=== PATIENT | male | born 1960 | race Caucasian/White ===

== ENCOUNTER 2016-05-10 12:00 | Day surgery (SDC) | payer BC ==
[2016-05-08 17:49] LABS: ASCORBIC ACID (UR NOT ORDER) NEG (NEG); BILIRUBIN, URINE NEGATIVE (NEG); KETONE, URINE NEGATIVE (NEG)
[2016-05-08 17:53] LABS: HEMATOCRIT 50.4 % (40.0-51.0); HEMOGLOBIN 16.9 g/dL (13.6-17.8)
--- NOTE | ~2016-05-10 | OP ---
Record Of Operation [facility] [address] [place] [place]. [address] NAME: KEVIN DIAZ : 56 STATUS : [facility]#: [id number] AGE: 55 ADM/REG DATE : 05/10/16 MR#: [id number] REPORT SERV DATE: 05/10/16 DICTATED BY: CHRISTOPHER JOHNSON III DATE: 05/10/16 REPORT STATUS : Draft TRANSCRIBED BY: MODL DATE: 05/10/16 DATE OF PROCEDURE: 05/10/2016 PREOPERATIVE DIAGNOSIS: Right ureteral calculus. POSTOPERATIVE DIAGNOSIS: Right ureteral calculus. PROCEDURE: ESWL. SURGEON: Christopher Johnson M.D. ANESTHESIA: General. INDICATION: Mr. Diaz is a 55-year-old white male with history of a right ureteral calculus. This is at the level L4. Options have been discussed. He voices understanding and wishes to proceed with lithotripsy. DESCRIPTION OF PROCEDURE: After consent was obtained, the patient was identified and he was taken to the lithotripsy room and placed on the table in the supine position. His stone was visualized and the unit was made ready. He had been vomiting, so he was then intubated. Lithotripsy commenced. He ultimately received 4000 shocks to a power level of 9. He tolerated the procedure well and was taken to the recovery in stable condition. PH/MODL Christopher Johnson III, M.D. / [id number] CC: René Guan III, M.D.
[~2016-05-10 12:00] MED LIST: LIPITOR80 MG PO; NORCO1 TAB PO; T PO; TORATAB PO
== END 2016-05-10 23:59 | disposition home or self-care (01) ==
LOC: SDC 12:00
PROVIDERS: Urology
PROC: 0TF6XZZ Fragmentation in Right Ureter, External Approach (ICD-10-PCS; principal; 2016-05-10 14:00)
DX: N20.1 Calculus of ureter (principal); Z79.1 Long term (current) use of non-steroidal anti-inflammatories (NSAID); Z79.899 Other long term (current) drug therapy
CPT/HCPCS: 36415; 50590; 74000; 81001; 85014; 85018; 87086; 93005; A9270-GY; J0330; J2250; J2405; J2710; J3010

== ENCOUNTER 2016-05-24 13:26 | Day surgery (SDC) | payer BC ==
--- NOTE | ~2016-05-24 | OP ---
Record Of Operation [facility] [address] [place]. [address] NAME: KEVIN DIAZ : 56 STATUS : [facility]#: [id number] AGE: 55 ADM/REG DATE : 05/24/16 MR#: [id number] REPORT SERV DATE: 05/27/16 DICTATED BY: CHRISTOPHER JOHNSON III DATE: 05/27/16 REPORT STATUS : Draft TRANSCRIBED BY: MODL DATE: 05/27/16 DATE OF PROCEDURE: 05/24/2016 PREOPERATIVE DIAGNOSIS: Right proximal ureteral calculus. POSTOPERATIVE DIAGNOSIS: Right proximal ureteral calculus. PROCEDURES: Cystoscopy, right retrograde pyelogram, right ureteroscopy, laser lithotripsy of ureteral calculus, basket extraction of stone fragments and stent placement. SURGEON: Christopher Johnson M.D. ANESTHESIA: General. SPECIMEN: Stone material. DRAINS: A 6 x 26 cm double-J ureteral stent. INDICATION: Mr. Diaz is a 55-year-old white male, found to have a proximal ureteral calculus. He has been unable to pass the stone. Consent is obtained for the above procedure. PROCEDURE IN DETAIL: After consent was obtained, the patient was identified. He was taken to the OR and put to sleep. He was positioned in the low lithotomy position and prepped and draped in the usual fashion. The 22-Malay cystoscope was made ready and advanced into the bladder. Anterior urethra and prostatic urethra appeared normal. The bladder appeared normal. There were no tumors, stones, or foreign bodies. A cone-tipped ureteral catheter was used to obtain a right retrograde pyelogram showing a filling defect in the area of the iliac vessels. A Glidewire was passed up the right ureter over which a ureteral access sheath was used to dilate the ureter. The rigid ureteroscope was made ready. I was able to then passes up into the proximal ureter and the stone was visualized. It was too big to remove intact. The holmium laser was then used to fragment the stone. When the fragments were small enough to be retrieved with a basket, Nitinol basket was used to do so. After fragments were removed, the ureter was reinspected no significant fragments were remaining. The cystoscope was then reinserted into the bladder, which was then drained some fragments, passed out the cystoscope sheath. The guidewire was then backloaded through the cystoscope, which was advanced in the bladder. A 6 x 26 cm double-J ureteral stent was then advanced over the wire. When in position, the wire was removed. The stent was noted to coil in the renal collecting system as well as the bladder. The bladder was then drained. The scope removed. The string was left attached, which was secured to the penis. The patient was awakened and taken to recovery in stable condition. PH/MODL Christopher Johnson Record Of [address] [address] NAME: KEVIN DIAZ : 56 STATUS : [facility] PAT#: [id number] AGE: 55 ADM/REG DATE : 05/24/16 MR#: [id number] REPORT SERV DATE: 05/27/16 DICTATED BY: CHRISTOPHER JOHNSON III DATE: 05/27/16 REPORT STATUS : Draft TRANSCRIBED BY: MODL DATE: 05/27/16 René RAMOS / [id number] CC: René Guan III, J. Scott
[2016-05-24 14:26] LABS: HEMATOCRIT 50.2 % (40.0-51.0)
[2016-05-29 19:24] LABS: STONE COMPOSITION TWO DNR (())
== END 2016-05-24 18:26 | disposition home or self-care (01) ==
LOC: SDC 13:26
PROVIDERS: Urology
PROC: BT1DYZZ Fluoroscopy of Right Kidney, Ureter and Bladder using Other Contrast (ICD-10-PCS; 2016-05-24)
PROC: 0T768DZ Dilation of Right Ureter with Intraluminal Device, Via Natural or Artificial Opening Endoscopic (ICD-10-PCS; principal; 2016-05-24 14:45)
PROC: 0TC68ZZ Extirpation of Matter from Right Ureter, Via Natural or Artificial Opening Endoscopic (ICD-10-PCS; 2016-05-24 14:45)
DX: N20.1 Calculus of ureter (principal); I10 Essential (primary) hypertension; Z79.891 Long term (current) use of opiate analgesic; Z79.899 Other long term (current) drug therapy; Z87.442 Personal history of urinary calculi
CPT/HCPCS: 74420; 82365; 85014; 85018; C1769; C1894; C2617; J2405; J2710; J3010; Q9967